=== PATIENT | male | born 1945 | race Two or more races ===

== ENCOUNTER 2018-04-19 20:02 | Emergency (ER) | payer MEDICARE, OTHER ==
[~2018-04-19] VITALS: Ht 167.6 cm; Wt 74.8 kg
[~2018-04-19 20:02] MED LIST: FOLIC ACID1 MG ORAL; LISINOPRIL5 MG ORAL; METFORMIN HCL500 M1 ORAL; PROPRANOLOL HCL10 MG ORAL; SIMVASTATIN40 MG ORAL
[2018-04-19] MEDS ORDERED: Nitroglycerin 2% oint pkt TOPIC ONE (20:15)
--- NOTE | 2018-04-19 20:35 | Emergency Room Report ---
History of Present Illness General Chief Complaint: Chest Pain Source: Patient Present Illness HPI started Around 6:00 this evening. Substernal chest pain. Radiating to the left shoulder. No exacerbating or relieving factor. Denies any nausea or vomiting or diaphoresis. Currently, no chest pain. He took aspirin prior to arrival. Allergies: Coded Allergies: No Known Allergies (Unverified , 08/13/14) Patient History Past Medical History: DM Nursing Documentation-PMH Hx Cardiac Problems: No Hx Diabetes: Yes Hx Cancer: No Hx Gastrointestinal Problems: Yes Hx Neurological Problems: No Review of Systems All Other Systems: negative except mentioned in HPI Physical Exam Vital Signs Date Time Temp Pulse Resp B/P (MAP) Pulse Ox O2 Delivery O2 Flow Rate FiO2 04/19/18 19:56 97.9 76 16 178/95 98 Room Air General Appearance: well appearing, no apparent distress Head: normocephalic, atraumatic ENT: hearing grossly normal, normal voice Neck: full range of motion, supple Respiratory: no respiratory distress, speaking full sentences Gastrointestinal: normal inspection, non tender, soft Neurologic: alert, normal gait Skin: no rash Medical Decision Making Diagnostic Impression: Primary Impression: Chest pain ER Course Patient presents significant complexity or wrists. The patient has no chest this time. However, he does have significant amount risk factors. The patient will need to be admitted the hospital. The patient is not tachypnea, tachycardic, hypoxic. Pulmonary embolism was considered however unlikely. Aortic dissection was also considered pneumonia is considered pneumothorax were considered as well. The patient has no chest pain at this time. Laboratory Tests Test 04/19/18 21:04 White Blood Count 7.1 K/UL (4.8-10.8) Red Blood Count 4.44 M/UL (4.70-6.10) L Hemoglobin 14.1 G/DL (14.2-18.0) L Hematocrit 41.7 % (42.0-52.0) L Mean Corpuscular Volume 94 FL (80-99) Mean Corpuscular Hemoglobin 31.7 PG (27.0-31.0) H Mean Corpuscular Hemoglobin Concent 33.7 G/DL (32.0-36.0) Red Cell Distribution Width 11.8 % (11.6-14.8) Platelet Count 153 K/UL (150-450) Mean Platelet Volume 8.8 FL (6.5-10.1) Neutrophils (%) (Auto) 55.0 % (45.0-75.0) Lymphocytes (%) (Auto) 31.1 % (20.0-45.0) Monocytes (%) (Auto) 8.8 % (1.0-10.0) Eosinophils (%) (Auto) 3.4 % (0.0-3.0) H Basophils (%) (Auto) 1.8 % (0.0-2.0) Sodium Level 135 MMOL/L (136-145) L Potassium Level 5.5 MMOL/L (3.5-5.1) H Chloride Level 103 MMOL/L (98-107) Carbon Dioxide Level 23 MMOL/L (21-32) Anion Gap 9 mmol/L (5-15) Blood Urea Nitrogen 16 mg/dL (7-18) Creatinine 1.0 MG/DL (0.55-1.30) Estimate Glomerular Filtration Rate mL/min (>60) Glucose Level 85 MG/DL (74-106) Calcium Level 8.3 MG/DL (8.5-10.1) L Total Bilirubin 0.4 MG/DL (0.2-1.0) Aspartate Amino Transferase (AST) 60 U/L (15-37) H Alanine Aminotransferase (ALT) 43 U/L (12-78) Alkaline Phosphatase 59 U/L (46-116) Troponin I 0.007 ng/mL (0.000-0.056) Total Protein 6.8 G/DL (6.4-8.2) Albumin 3.1 G/DL (3.4-5.0) L Globulin 3.7 g/dL Albumin/Globulin Ratio 0.8 (1.0-2.7) L EKG Diagnostic Results EKG Time: 20:35 Rate: normal Rhythm: NSR ST Segments: no acute changes Other Impression RBBB Last Vital Signs Date Time Temp Pulse Resp B/P (MAP) Pulse Ox O2 Delivery O2 Flow Rate FiO2 04/19/18 19:56 97.9 76 16 178/95 98 Room Air Status: improved Disposition: PLACE IN OBSERVATION MIKEY MCKEON Apr 19, 2018 20:35
[2018-04-19 21:00] VITALS: BP 134/76
--- NOTE | 2018-04-19 21:05 | NUR ---
ED Nurse Note: PT BROUGHT IN BY JO-ANN c/o chest pain started today around 6pm, pt states he had never had this pain before, started feeling heavy and painful rates 8/10 and radiates to left shoulder and left arm, pt denies any exercise or injury, pt AA&ox4, gcs=15, skin warm and dry, resp even and unlabored, -n/v/d, abd mild distended, per pt statement, its normal, active bs, and normal BM yesterday, NSR on phone representative, VSS, will cont monitor.
--- NOTE | 2018-04-19 21:07 | Diagnostic Imaging Report ---
EXAM: XR Chest, 1 View CLINICAL HISTORY: CP TECHNIQUE: Frontal view of the chest. COMPARISON: No relevant prior studies available. FINDINGS: Lungs: Obscuration of the left hemidiaphragm raises the possibility of a basilar infiltrate. Lateral view may be helpful. Pleural space: Unremarkable. No pneumothorax. Heart: Unremarkable. No cardiomegaly. Mediastinum: Unremarkable. Bones/joints: Unremarkable. IMPRESSION: Obscuration of the left hemidiaphragm raises the possibility of a basilar infiltrate. Lateral view may be helpful.
[2018-04-19] MEDS ORDERED: DEXILANT60 MG ORAL (21:22)
[2018-04-19 21:26] LABS: BASOPHILS % (AUTO) 1.8 % (0.0-2.0); EOSINOPHILS % (AUTO) 3.4 % (0.0-3.0); HEMATOCRIT 41.7 % (42.0-52.0); HEMOGLOBIN 14.1 G/DL (14.2-18.0); LYMPHOCYTES % (AUTO) 31.1 % (20.0-45.0); MEAN CORPUSCULAR VOLUME 94 FL (80-99); MONOCYTES % (AUTO) 8.8 % (1.0-10.0); PLATELET COUNT 153 K/UL (150-450); RED BLOOD COUNT 4.44 M/UL (4.70-6.10); RED CELL DISTRIBUTION WIDTH 11.8 % (11.6-14.8); WHITE BLOOD COUNT 7.1 K/UL (4.8-10.8)
[2018-04-19] MEDS ORDERED: FOLIC ACID1 M1 PO (21:26)
[2018-04-19] MEDS ORDERED: METFORMIN HCL500 M1 ORAL (21:26)
[2018-04-19] MEDS ORDERED: FEROSUL325 M1 PO (21:26)
[2018-04-19 21:39] LABS: ANION GAP 9 mmol/L (5-15); BLOOD UREA NITROGEN 16 mg/dL (7-18); CALCIUM 8.3 MG/DL (8.5-10.1); CARBON DIOXIDE 23 MMOL/L (21-32); CHLORIDE 103 MMOL/L (98-107); POTASSIUM 5.5 MMOL/L (3.5-5.1); SODIUM 135 MMOL/L (136-145)
[2018-04-19 21:48] LABS: ALANINE AMINOTRANSFERASE 43 U/L (12-78); ALBUMIN 3.1 G/DL (3.4-5.0); ALBUMIN/GLOBULIN RATIO 0.8 (1.0-2.7); ALKALINE PHOSPHATASE 59 U/L (46-116); ASPARTATE AMINO TRANSFERASE 60 U/L (15-37); BILIRUBIN,TOTAL 0.4 MG/DL (0.2-1.0)
[2018-04-19 22:15] VITALS: BP 128/68
--- NOTE | 2018-04-19 22:15 | NUR ---
ED Nurse Note: pt states "I want to leave, I don't want any more tests done." Pt wants to leave AMA, ERMD notified, paperwork signed, iv d/c dressing applied and intact, wrist band removed, pt summary of care provided prior to ama, pt advised to return to ED if s/s worsen or new s/s develop, pt aware of risks and consequences. pt verbalized understanding. pt vss, ambulatory w/ steady gait, AA&ox4, gcs=15./
--- NOTE | 2018-04-20 13:23 | Cardiology Report ---
APPROVED REPORT EKG Measurement Heart [id number] Normal sinus rhythm Right bundle branch block Abnormal ECG
== END 2018-04-19 22:00 | disposition left against medical advice (07) ==
LOC: EDBD 20:02 → EMR 20:15 → EDBEDREQ 21:48 → EMR 22:00 → CANBEDREQ 22:24
DX: R07.2 Precordial pain (principal); E11.9 Type 2 diabetes mellitus without complications
CPT/HCPCS: 36415; 71045; 80053; 84484; 85025; 93005; 99285

== ENCOUNTER 2019-12-22 11:58 | Outpatient (CLI) | payer MEDICARE, OTHER ==
[~2019-12-22 11:58] MED LIST changes: +DEXILANT60 MG ORAL; +FEROSUL325 M1 PO; +FOLIC ACID1 M1 PO
--- NOTE | 2019-12-22 17:45 | Consultation ---
DATE OF CONSULTATION: 12/22/2019 CHIEF COMPLAINT: Referral for endoscopy and colonoscopy. PAST MEDICAL HISTORY: 1. Parkinson disease. 2. Hypertension. 3. Diabetes. PAST SURGICAL HISTORY: None. MEDICATIONS: Please see medication reconciliation list. FAMILY HISTORY: Noncontributory. SOCIAL HISTORY: The patient denies any tobacco, alcohol, or IV drug abuse. ALLERGIES: No known drug allergies. REVIEW OF SYSTEMS: A 10-point review of systems was performed and he had no significant finding. PHYSICAL EXAMINATION: VITAL SIGNS: Temperature 97.2. Vital signs are stable. HEENT: Normocephalic and atraumatic. Sclerae anicteric. NECK: Supple. No evidence of obvious lymphadenopathy. CARDIOVASCULAR: Regular rate and rhythm. Plus S1, S2. LUNGS: Clear to auscultation bilaterally. ABDOMEN: Positive bowel sounds. Soft and nontender. No rebound. No guarding. No peritoneal sign. EXTREMITIES: No cyanosis. No clubbing. No edema. ASSESSMENT AND PLAN: This is a 74-year-old male who was referred to us for screening colonoscopy. He also has complaint of GERD. We will schedule the patient for endoscopy and colonoscopy. The patient was given instruction for colonoscopy. Risks and benefits of the procedure were explained to him. We will plan as soon as the patient is scheduled. I want to thank Dr. Hong Castellano for this kind referral. Hong Rizo M.D. DR: John JOB#: [id number] CC: Hong Castellano MD
== END 2019-12-22 13:58 | disposition home or self-care (01) ==
LOC: PAN 11:58
DX: I10 Essential (primary) hypertension (principal); E11.9 Type 2 diabetes mellitus without complications; G20 Parkinson's disease; K21.9 Gastro-esophageal reflux disease without esophagitis

== ENCOUNTER 2020-01-12 08:27 | Day surgery (SDC) | payer MEDICARE, OTHER ==
[2020-01-12] VITALS (8 sets, daily range): BP systolic 97–127; BP diastolic 63–82
[~2020-01-12] VITALS: Ht 175.3 cm; Wt 81.6 kg
[~2020-01-12 08:27] MED LIST changes: +LR 1000ml 1,000 ML IVLG SCH
--- NOTE | 2020-01-12 09:34 | Short Stay Surgery H&P ---
History of Present Illness History of Present Illness Chief Complaint see recent office consult note HPI Marysol Ramírez is a 74 year old male who was admitted on for Gerd, Colon Screening Patient History Allergies: Coded Allergies: No Known Allergies (Unverified , 01/12/20) Medication History Scheduled Dexlansoprazole (Dexilant), 60 MG ORAL DAILY, (Reported) Folic Acid* (Folic Acid*), 1 MG ORAL DAILY, (Reported) Lisinopril (Lisinopril*), 5 MG ORAL DAILY, (Reported) Metformin Hcl* (Metformin Hcl*), 500 MG ORAL TWICE A DAY, (Reported) Metformin Hcl* (Metformin Hcl*), 500 MG ORAL TWICE A DAY, (Reported) Propranolol Hcl* (Inderal*), 10 MG ORAL BID, (Reported) Simvastatin (Zocor), 40 MG ORAL BEDTIME, (Reported) Miscellaneous Medications Ferrous Sulfate (Ferosul), 5 GR PO, (Reported) Folic Acid (Folic Acid), 1 MG PO, (Reported) Physical Exam Labs Laboratory Tests Test 01/12/20 09:28 POC Whole Blood Glucose Pending Plan Attestation Are the patient's medical conditions optimized for surgery? Hong Rizo MD Jan 12, 2020 09:34
--- NOTE | 2020-01-12 09:35 | Pre-Procedure Note/Attestation ---
Pre-Procedure Note/Attestation Complete Prior to Procedure Planned Procedure: not applicable Procedure Narrative: esophagogastroduodenoscopy and colonoscopy Indications for Procedure Pre-Operative Diagnosis: screening colon, GERD Attestation I attest that I discussed the nature of the procedure; its benefits; risks and complications; and alternatives (and the risks and benefits of such al ternatives), prior to the procedure, with the patient (or the patient's legal sales representative printing). I attest that, if there was a reasonable possibility of needing a blood transfusion, the patient (or the patient's legal sales representative printing) was given the [facility] standardized written summary, pursuant to the [place] Blood Safety Act ([place] Health and Safety Code # 1645, as amended). I attest that I re-evaluated the patient just prior to the surgery and that there has been no change in the patient's H&P, except as documented below: Hong Rizo MD Jan 12, 2020 09:34
[2020-01-12] MEDS ORDERED: LR 1000ml ONE (10:00)
--- NOTE | 2020-01-12 10:19 | Endoscopy Procedure Note ---
Endoscopy Procedure Note General Indication for Procedure: screening colon, GERD Procedures Performed: EGD, colonoscopy Operative Findings/Diagnosis: gastritis, hemorrhoids Specimen: yes Pt Tolerated Procedure Well: Yes Estimated Blood Loss: none Anesthesia Anesthesiologist: [place] Anesthesia: MAC Inserted Devices Implant(s) used?: No Quality Quality of Bowel Preparation: Good Did scope reach the cecum?: Yes Was there any complications?: No GI Core Measures 50 yrs or older w/o bx or poly: No 10yrs. F/U recommended: Yes If not recommended, why?: Above average risk 18 years or older w/prev. colo: No Hong Rizo MD Jan 12, 2020 10:19
--- NOTE | 2020-01-12 10:21 | Anethesia Preoperative Eval ---
Anesthesia Pre-op PMH/ROS General Date of Evaluation: Jan 12, 2020 Time of Evaluation: 10:00 ASA Score: ASA 2 Mallampati Score Class I : Soft palate, uvula, fauces, pillars visible Class II: Soft palate, uvula, fauces visible Class III: Soft palate, base of uvula visible Class IV: Only hard plate visible Mallampati Classification: Class II Allergies: Coded Allergies: No Known Allergies (Unverified , 01/12/20) Patient NPO?: Yes Anesthesia Pre-op Phys. Exam Physician Exam Last Vital Signs Date Time Temp Pulse Resp B/P (MAP) Pulse Ox O2 Delivery O2 Flow Rate FiO2 01/12/20 09:42 97.0 72 16 116/77 100 Room Air Airway Exam Mallampati Score: Class I Anesthesia Pre-op A/P Labs Chemistry Test 01/12/20 09:28 POC Whole Blood Glucose Pending Nino Azevedo MD Jan 12, 2020 10:21
--- NOTE | 2020-01-12 10:22 | Immediate Post-Op Evaluation ---
Immediate Post-Op Evalulation Immediate Post-Op Evalulation Procedure: egd colonscopy Date of Evaluation: Jan 12, 2020 Time of Evaluation: 11:00 Nausea: No Vomiting: No Nino Azevedo MD Jan 12, 2020 10:22
--- NOTE | 2020-01-12 11:15 | Procedure Note ---
DATE OF PROCEDURE: 01/12/2020 SURGEON: Hong Rizo MD. PROCEDURE: Upper endoscopy with biopsy and colonoscopy with snare polypectomy and biopsy. ANESTHESIA: Per Dr. Azevedo. INSTRUMENT: Olympus adult flexible endoscope and colonoscope. INDICATION: 1. Screening colonoscopy evaluation. 2. Chronic GERD. REASON FOR PROCEDURE: The procedure, risks, benefits, and possible consequences, including hemorrhage, aspiration, perforation and infection, and alternative treatments, were explained to the patient/legal guardian by Dr. Hong Rizo and the patient/legal guardian understood and accepted these risks. PROCEDURE IN DETAIL: After informed consent was obtained and the patient was adequately sedated, Olympus upper endoscope was advanced from mouth into the second portion of duodenum and retroflexion was performed in the stomach. The patient had diffuse gastritis. Random biopsy from antrum and body was obtained to rule out H. pylori infection. Otherwise, the rest of upper endoscopic examination grossly within normal limits. At this time, the upper endoscope was retrieved. The patient was turned over for colonoscopy. First, rectal exam was performed which was positive for internal hemorrhoids. Then the scope was advanced from the rectum into the cecum documented by appendiceal orifice, ileocecal valve, and right upper quadrant palpation. Quality of prep was fair. Given this prep, 10% of the colonic mucosa was not fully examined. The patient had one sessile polyp in the rectum removed with the snare polypectomy technique. This polyp measured roughly about 6 to 7 mm. The patient had a few more hyperplastic looking polyps in the rectum removed with cold biopsy forceps technique. In the rectosigmoid area also was 2 hyperplastic looking polyps removed with cold biopsy forceps technique. So, a total of 5 polyps removed. Retroflexion of rectum showed evidence of internal hemorrhoids. SUMMARY OF FINDINGS: 1. Gastritis, status post biopsy. 2. Five colonic polyp removed, see above for details. 3. Fair colonic prep. 4. Internal hemorrhoids. RECOMMENDATIONS: 1. Follow up path. 2. We will recommend repeat colonoscopy in 3 years. I want to thank Dr. Hong Castellano, for this kind referral. Hong Rizo M.D. DR: John JOB#: [id number] CC: Hong Castellano M.D.; Fax#: [phone]
--- NOTE | 2020-01-13 16:25 | Cardiology Report ---
APPROVED REPORT EKG Measurement Heart [id number] <Conclusion> Normal sinus rhythm Possible Left atrial enlargement Right bundle branch block Abnormal ECG
== END 2020-01-12 11:55 | disposition home or self-care (01) ==
LOC: GAS 08:27
DX: Z12.11 Encounter for screening for malignant neoplasm of colon (principal); K21.9 Gastro-esophageal reflux disease without esophagitis; K63.5 Polyp of colon; K29.70 Gastritis, unspecified, without bleeding; K64.8 Other hemorrhoids; I45.10 Unspecified right bundle-branch block; Z79.899 Other long term (current) drug therapy; Z79.84 Long term (current) use of oral hypoglycemic drugs
CPT/HCPCS: 43239; 45380; 45385; 82962; 93005; 94003; J2704; J7120; U0002; 94150

== ENCOUNTER 2020-01-26 13:29 | Outpatient (CLI) | payer MEDICARE, OTHER ==
[~2020-01-26 13:29] MED LIST changes: -LR 1000ml 1,000 ML IVLG SCH
[2020-01-26 13:50] VITALS: BP 104/57
--- NOTE | 2020-01-26 14:56 | General Progress Note ---
Subjective ROS Limited/Unobtainable: Yes Allergies: Coded Allergies: No Known Allergies (Unverified , 01/12/20) Objective Last 24 Hour Vital Signs Date Time Temp Pulse Resp B/P (MAP) Pulse Ox O2 Delivery O2 Flow Rate FiO2 01/26/20 13:50 98.0 64 18 104/57 97 General Appearance: alert EENT: normal ENT inspection Neck: supple Cardiovascular: normal rate Respiratory/Chest: lungs clear Abdomen: normal bowel sounds, non tender, soft Extremities: non-tender Assessment/Plan Assessment/Plan: SUMMARY OF FINDINGS: 1. Gastritis, status post biopsy. 2. Five colonic polyp removed, see above for details. 3. Fair colonic prep. 4. Internal hemorrhoids. repeat colon in 3 years cont Hong Jackson MD Jan 26, 2020 14:56
== END 2020-01-26 15:29 | disposition home or self-care (01) ==
LOC: PAN 13:29
DX: K29.70 Gastritis, unspecified, without bleeding (principal); K63.5 Polyp of colon; K64.8 Other hemorrhoids
CPT/HCPCS: 99212